=== PATIENT | female | born 1955 | race Caucasian/White ===

== ENCOUNTER 2022-08-13 11:55 | Inpatient (IN) | payer MEDICARE ==
[~2022-08-13] VITALS: Ht 165.1 cm; Wt 101.1 kg
[2022-08-13 12:45] LABS: Hematocrit 36.6 % (33.0-51.0); Hemoglobin 12.9 g/dL (11.5-16.0); Mean Corpuscular HGB 30.6 pg (26.0-34.0); Mean Corpuscular HGB Conc 35.2 g/dL (31.5-36.5); Mean Corpuscular Volume 87 fL (80-100); Mean Platelet Volume 10.7 fL (9.1-12.4); Platelet Count 511 K/mm3 (150-400); RDW Coefficient Variation 13.6 % (11.7-14.2); RDW Standard Deviation 43.6 fL (35.1-46.3); Red Blood Cell Count 4.22 M/mm3 (3.80-5.20); White Blood Cell Count 27.58 K/mm3 (4.00-11.30)
[2022-08-13 13:08] LABS: Albumin, Blood 2.1 g/dL (3.4-5.0); Albumin/Globulin Ratio 0.4 (0.8-1.8); Bilirubin, Total 0.8 mg/dL (0.1-1.0); Bun/Creatinine Ratio 36.4 (12.0-20.0); Calcium, Blood 11.9 mg/dL (8.5-10.1); Creatinine, Blood 1.87 mg/dL (0.40-1.00); Globulin, Blood 5.1 g/dL (2.2-4.0); Potassium, Blood 2.8 mmol/L (3.5-5.5); Total Protein, Blood 7.2 g/dL (6.4-8.2)
[2022-08-13 13:23] LABS: BAND PERCENT MAN 3 % (0-8); BASOPHILS PERCENT MAN 0 % (0-2); EOSINOPHILS ABSOLUTE MAN 0.27 K/mm3 (0.00-0.68); EOSINOPHILS PERCENT MAN 1 % (0-6); LYMPHOCYTES ABSOLUTE MAN 3.03 K/mm3 (0.84-5.20); LYMPHOCYTES PERCENT MAN 11 % (21-46); MONOCYTES ABSOLUTE MAN 1.37 K/mm3 (0.16-1.47); MONOCYTES PERCENT MAN 5 % (4-13); NEUTROPHILS ABSOLUTE MAN 22.89 K/mm3 (1.96-9.15); SEG NEUTROPHILS PERCENT MAN 80 % (41-73); TOTAL CELLS COUNTED 100
--- NOTE | 2022-08-13 16:47 | NUR ---
VERBAL ORDER FOR 3 LITERS LR BOLUS FROM HOSPITALIST
[2022-08-13] MEDS ORDERED: METF500 PO (18:00)
[2022-08-13] MEDS ORDERED: LOSARTAN-HCTZ1 EACH PO (18:02)
[2022-08-13] MEDS ORDERED: ATEN25 PO (18:03)
[2022-08-13] MEDS ORDERED: ZOCOR20 MG PO (18:04)
[2022-08-13 22:38] LABS: Bun/Creatinine Ratio 36.3 (12.0-20.0); Calcium, Blood 10.6 mg/dL (8.5-10.1); Creatinine, Blood 1.71 mg/dL (0.40-1.00); Potassium, Blood 3.3 mmol/L (3.5-5.5)
--- NOTE | 2022-08-13 23:53 | NUR ---
NEW ADMIT FROM OR/TRANSFER TO [facility]: PT ARRIVED TO THE UNIT POST-OP FROM AN I&D @ 2152. PT HAD SIGNIFICANT DEBRIDMENT OF THE PERINEAL REGION; REGION IS OPEN AND PAKCED WITH KERLIX, PADDED AND SECURED WITH A DISPOSABLE UNDERWARE. THE BANDAGE IS C/D/I, DRYFLOW SHEETS PLACED UNDERNEATH FOR TRANSFER. PT HAS NO C/O OF PAIN POST-OP. PT ARRIVED TO THE UNIT ON A NON-REBREATHER @ 10 LPM, TRANSITIONED TO NC @ 4 LPM AND TOLERATING WELL. PT LUNG SOUNDS CLEAR, RR 18-20. PT HAD NO C/O CHEST PAIN OF SOB. HYPOACTIVE BS IN ALL QUADRANTS, AND PT NPO AT THIS TIME IN PREPARATION FOR TRANSFER TO [facility]. KRISHNAN IN PLACE AND DRAINING TO GRAVITY; URINE LIGHT YELLOW/CLEAR AND 800 ML OUTPUT. PPP X 4; SKIN WARM AND INTACT. PT HAS A RIJ CENTRAL LINE INFUSING LR AND KCL REPLACEMENT BAG. PT LIFE-PARTNER, [employer], AT BEDSIDE AND UPDATED BY DR STOKES REGARDING OPERATION AND THIS RN UPDATED [facility] REGARDING TRANSFER PROCESS AND PT'S CURRENT STATUS; ALL QUESTIONS WERE ANSWERED AT THIS TIME. PT PERSONAL BELONGINGS ALREADY TAKEN HOME BY SIGNIFICANT OTHER PRIOR TO ARRIVING TO THE UNIT. REPORT CALLED TO [facility] SURGICAL-RACK PRODUCTION WORKER, ISAAC, WHO WILL ASSUME CARE OF PT UPON ARRIVAL. PT LEFT WITH PARAMEDICS FOR GROUND TRANSPORT TO [facility] @ 1834.
== END 2022-08-13 23:44 | disposition short-term general hospital (02) | DRG 853 ==
LOC: ER 11:55 → ICUW 16:01
PROVIDERS: Family Medicine; Physician Assistant; Surgery; ADMIT Hospitalist
PROC: B548ZZA Ultrasonography of Superior Vena Cava, Guidance (ICD-10-PCS; 2022-08-13)
PROC: 0JB90ZZ Excision of Buttock Subcutaneous Tissue and Fascia, Open Approach (ICD-10-PCS; 2022-08-13)
PROC: 0JBB0ZZ Excision of Perineum Subcutaneous Tissue and Fascia, Open Approach (ICD-10-PCS; 2022-08-13)
PROC: 3E03329 Introduction of Other Anti-infective into Peripheral Vein, Percutaneous Approach (ICD-10-PCS; 2022-08-13)
PROC: 02HV33Z Insertion of Infusion Device into Superior Vena Cava, Percutaneous Approach (ICD-10-PCS; principal; 2022-08-13 17:00)
DX: A41.9 Sepsis, unspecified organism (principal); M72.6 Necrotizing fasciitis; E87.1 Hypo-osmolality and hyponatremia; N17.9 Acute kidney failure, unspecified; L02.215 Cutaneous abscess of perineum; R65.20 Severe sepsis without septic shock; K90.0 Celiac disease; F10.10 Alcohol abuse, uncomplicated; N76.82 Fournier disease of vagina and vulva; E11.65 Type 2 diabetes mellitus with hyperglycemia; E86.1 Hypovolemia; I10 Essential (primary) hypertension; E87.6 Hypokalemia; Z90.49 Acquired absence of other specified parts of digestive tract; Z98.890 Other specified postprocedural states; Z98.42 Cataract extraction status, left eye; Z98.41 Cataract extraction status, right eye; Z87.01 Personal history of pneumonia (recurrent)
CPT/HCPCS: 36415; 71045; 74177; 80048; 80053; 82435; 82947; 83605; 83735; 84132; 84295; 85025; 87070; 87071; 87075; 87205; 93005; 93010; 96374-59; 96375; 99285-25; J1100; J1815; J2270; J2405; J2543; J2704; J3010; J3370; J3480; J7050; J7120; Q9967

== ENCOUNTER 2022-09-03 00:05 | Day surgery (SDC) | payer MEDICARE ==
[~2022-09-03 00:05] MED LIST: ATEN25 PO; LOSARTAN-HCTZ1 EACH PO; METF500 PO; ZOCOR20 MG PO
== END 2022-09-03 22:49 | disposition home or self-care (01) ==
LOC: WOUND 00:05
DX: T81.41XA Infection following a procedure, superficial incisional surgical site, initial encounter (principal); K90.0 Celiac disease; E11.9 Type 2 diabetes mellitus without complications; E11.52 Type 2 diabetes mellitus with diabetic peripheral angiopathy with gangrene; I96 Gangrene, not elsewhere classified
CPT/HCPCS: G0463

== ENCOUNTER 2022-09-10 01:00 | Day surgery (SDC) | payer MEDICARE | END 2022-09-10 23:42 | disposition home or self-care (01) | LOC: WOUND 01:00 | DX: E11.622 Type 2 diabetes mellitus with other skin ulcer (principal); E11.52 Type 2 diabetes mellitus with diabetic peripheral angiopathy with gangrene | CPT/HCPCS: G0463 ==

== ENCOUNTER 2022-09-17 00:53 | Day surgery (SDC) | payer MEDICARE | END 2022-09-17 22:57 | disposition home or self-care (01) | LOC: WOUND 00:53 | DX: E11.52 Type 2 diabetes mellitus with diabetic peripheral angiopathy with gangrene (principal); L08.9 Local infection of the skin and subcutaneous tissue, unspecified; E11.622 Type 2 diabetes mellitus with other skin ulcer | CPT/HCPCS: G0463 ==

== ENCOUNTER 2022-09-24 00:31 | Day surgery (SDC) | payer MEDICARE | END 2022-09-24 22:45 | disposition home or self-care (01) | LOC: WOUND 00:31 | DX: T81.41XA Infection following a procedure, superficial incisional surgical site, initial encounter (principal); E11.622 Type 2 diabetes mellitus with other skin ulcer; E11.52 Type 2 diabetes mellitus with diabetic peripheral angiopathy with gangrene | CPT/HCPCS: A9270; G0463 ==

== ENCOUNTER 2022-10-01 00:28 | Day surgery (SDC) | payer MEDICARE | END 2022-10-01 23:17 | disposition home or self-care (01) | LOC: WOUND 00:28 | DX: E11.52 Type 2 diabetes mellitus with diabetic peripheral angiopathy with gangrene (principal); E11.622 Type 2 diabetes mellitus with other skin ulcer | CPT/HCPCS: A9270; G0463 ==

== ENCOUNTER 2022-10-15 00:40 | Day surgery (SDC) | payer MEDICARE | END 2022-10-15 22:55 | disposition home or self-care (01) | LOC: WOUND 00:40 | DX: T81.41XA Infection following a procedure, superficial incisional surgical site, initial encounter (principal); N76.82 Fournier disease of vagina and vulva; E11.622 Type 2 diabetes mellitus with other skin ulcer | CPT/HCPCS: A9270 ==

== ENCOUNTER 2022-10-22 01:04 | Day surgery (SDC) | payer MEDICARE | END 2022-10-22 23:01 | disposition home or self-care (01) | LOC: WOUND 01:04 | DX: T81.41XA Infection following a procedure, superficial incisional surgical site, initial encounter (principal); Y83.8 Other surgical procedures as the cause of abnormal reaction of the patient, or of later complication, without mention of misadventure at the time of the procedure | CPT/HCPCS: A9270; G0463 ==

== ENCOUNTER 2022-10-29 01:08 | Day surgery (SDC) | payer MEDICARE | END 2022-10-29 22:43 | disposition home or self-care (01) | LOC: WOUND 01:08 | DX: T81.41XA Infection following a procedure, superficial incisional surgical site, initial encounter (principal); E11.52 Type 2 diabetes mellitus with diabetic peripheral angiopathy with gangrene; E11.622 Type 2 diabetes mellitus with other skin ulcer; Y83.9 Surgical procedure, unspecified as the cause of abnormal reaction of the patient, or of later complication, without mention of misadventure at the time of the procedure | CPT/HCPCS: A9270; G0463 ==

== ENCOUNTER 2022-11-05 00:19 | Day surgery (SDC) | payer MEDICARE | END 2022-11-05 23:04 | disposition home or self-care (01) | LOC: WOUND 00:19 | DX: E11.52 Type 2 diabetes mellitus with diabetic peripheral angiopathy with gangrene (principal); E11.622 Type 2 diabetes mellitus with other skin ulcer | CPT/HCPCS: G0463 ==

== ENCOUNTER → 2023-06-24 | Outpatient (CLI) | payer MEDICARE | LOC: LAB SHORT 13:06 → LAB 13:06 | DX: E11.622 Type 2 diabetes mellitus with other skin ulcer (principal) | CPT/HCPCS: 82043 ==

== ENCOUNTER → 2023-08-30 | Outpatient (CLI) | payer MEDICARE ==
[2023-08-30 14:19] LABS: Creatinine Urine 47.3 mg/dL (27.00-270.00); Microalbumin, Urine Quant. 76.2 mg/L (0.000-20.000); Protein, Urine Quantitative 19.1 mg/dL (0.0-11.9)
== END | disposition home or self-care (01) ==
LOC: LAB SHORT 09:40 → LAB 09:40 → LAB FUT 08-27 09:45
PROVIDERS: Internal Medicine Nephrology
DX: N18.30 Chronic kidney disease, stage 3 unspecified (principal); D63.1 Anemia in chronic kidney disease; N25.81 Secondary hyperparathyroidism of renal origin; E55.9 Vitamin D deficiency, unspecified; E78.00 Pure hypercholesterolemia, unspecified; D51.8 Other vitamin B12 deficiency anemias; D52.8 Other folate deficiency anemias; D50.9 Iron deficiency anemia, unspecified; R76.9 Abnormal immunological finding in serum, unspecified; R94.5 Abnormal results of liver function studies; R94.6 Abnormal results of thyroid function studies
CPT/HCPCS: 81050; 82043; 82570; 84156

== ENCOUNTER → 2023-10-30 | Outpatient (CLI) | payer MEDICARE ==
[2023-11-03 00:25] LABS: CREATININE,URINE - PER VOLUME 43 mg/dL; HOURS COLLECTED Not Provided hr; METANEPHRINE,UR - RATIO TO CRT 333 ug/g CRT (0-300); METANEPHRINE,URN - PER VOLUME 143 ug/L; NORMETANEPHRINE,U - PER VOLUME 198 ug/L; NORMETANEPHRINE,URN/CRT RATIO 460 ug/g CRT (0-400); TOTAL VOLUME Not Provided mL
== END | disposition home or self-care (01) ==
LOC: LAB 09:25 → LAB SHORT 09:25 → LAB FUT 10-27 08:15
PROVIDERS: Internal Medicine Nephrology
DX: E11.65 Type 2 diabetes mellitus with hyperglycemia (principal); E11.22 Type 2 diabetes mellitus with diabetic chronic kidney disease; N18.30 Chronic kidney disease, stage 3 unspecified; D63.1 Anemia in chronic kidney disease; N25.81 Secondary hyperparathyroidism of renal origin; E55.9 Vitamin D deficiency, unspecified; E78.00 Pure hypercholesterolemia, unspecified; R94.5 Abnormal results of liver function studies; R94.6 Abnormal results of thyroid function studies; R76.9 Abnormal immunological finding in serum, unspecified
CPT/HCPCS: 82043; 83835

== ENCOUNTER → 2024-01-31 | Outpatient (CLI) | payer MEDICARE | END | disposition home or self-care (01) | LOC: LAB 17:14 → LAB SHORT 17:14 | DX: N39.0 Urinary tract infection, site not specified (principal) | CPT/HCPCS: 87077; 87086; 87186 ==

== ENCOUNTER → 2025-05-13 | Outpatient (CLI) | payer MEDICARE ==
[2025-05-13 19:37] LABS: Creatinine, Urine Random 128.0 mg/dL (27.00-270.00)
[2025-05-13 19:44] LABS: Microalb/Creat Ratio UR, Rand 389.063 mg/g (0.000-30.000); Microalbumin, Random Urine 498.0 mg/L (0.000-20.000)
== END | disposition home or self-care (01) ==
LOC: LAB 13:40 → LAB SHORT 13:40
PROVIDERS: Internal Medicine Endocrinology, Diabetes & Metabolism
DX: E11.65 Type 2 diabetes mellitus with hyperglycemia (principal)
CPT/HCPCS: 82043; 82570

== ENCOUNTER 2025-05-17 01:06 | Day surgery (SDC) | payer MEDICARE ==
[2025-05-17 10:30] VITALS: BP 155/92
--- NOTE | 2025-05-17 11:53 | NUR ---
STOP TIME FOR ZOLEDRONIC ACID WAS [id number]
== END 2025-05-17 11:30 | disposition home or self-care (01) ==
LOC: ATC 01:06
DX: M81.0 Age-related osteoporosis without current pathological fracture (principal); E11.65 Type 2 diabetes mellitus with hyperglycemia; E21.0 Primary hyperparathyroidism; E78.2 Mixed hyperlipidemia; I10 Essential (primary) hypertension; E55.9 Vitamin D deficiency, unspecified; K76.0 Fatty (change of) liver, not elsewhere classified; Z87.891 Personal history of nicotine dependence; Z88.8 Allergy status to other drugs, medicaments and biological substances; Z79.84 Long term (current) use of oral hypoglycemic drugs; Z79.899 Other long term (current) drug therapy; Z90.49 Acquired absence of other specified parts of digestive tract
CPT/HCPCS: 96365; J3489